=== PATIENT | male | born 1965 | race Hispanic/Latino ===

== ENCOUNTER 2019-11-30 05:07 | Emergency (ER) | payer MEDICARE ==
--- NOTE | 2019-11-30 06:36 | XRay Report ---
EXAMINATION: Right hand radiograph, 3 views, 11/30/2019 CLINICAL INFORMATION: Right hand pain. No history of trauma is given. COMPARISON: None. FINDINGS: There is no evidence of acute bony fracture or significant soft tissue swelling. No signifi cant bony degenerative changes are noted. Signer Name: Nakia Dumont MD Signed: 11/30/2019 6:32 AM Workstation Name: [email or web address]
[2019-11-30] MEDS ORDERED: IBUPROFEN 600 MG TAB PO ONE (08:31)
[2019-11-30 09:09] VITALS: BP 147/112
--- NOTE | 2019-11-30 09:09 | Emergency Department Report ---
ED Upper Extremity Inj HPI - General Chief Complaint: Extremity Injury, Upper Stated Complaint: RIGHT HAND PAIN Time Seen by Provider: 11/30/19 07:33 Source: patient Mode of arrival: Ambulatory Limitations: No Limitations - History of Present Illness Initial Comments: 53-year-old male who presents to ED complaining of right hand pain stating that he he may have had a stone go into his finger. 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 Patient states that the stone Reglan and there is index finger posteriorly. Patient states he feels like there is a foreign body behind his first digit finger. Patient denies any bleeding after incident. He denies fevers/chills/nausea vomiting. Other Extremity Injury: Hand: Right Other Injuries: none Handedness: right Place: work Severity scale (0 -10): 4 - Related Data Home Medications Medication Instructions Recorded Confirmed Last Taken HYDROcodone/ACETAMINOPHEN 1 tab PO BID 02/22/14 Unknown [Hydrocodon-Acetaminophn 10-325] Lactulose 30 ml PO BID 02/22/14 Unknown QUEtiapine [Seroquel] 300 mg PO HS 02/22/14 Unknown hydroCHLOROthiazide 1 tab PO DAILY 02/22/14 Unknown [Hydrochlorothiazide] Previous Rx's Medication Instructions Recorded Last Taken Type Ibuprofen [Motrin 800 MG tab] 800 mg PO Q8HR #30 tablet 11/30/19 Unknown Rx Allergies Allergy/AdvReac Type Severity Reaction Status Date / Time cephalexin [From Keflex] Allergy Hives Verified 11/22/19 02:01 sulfamethoxazole Allergy Unknown Verified 02/22/14 15:27 [From Bactrim] trimethoprim [From Bactrim] Allergy Unknown Verified 02/22/14 15:27 ED Review of Systems ROS: Stated complaint: RIGHT HAND PAIN Other details as noted in HPI ED Past Medical Hx - Past Medical History Previous Medical History?: Yes Hx Hypertension: Yes Hx Seizures: Yes Hx Psychiatric Treatment: Yes (Schizoaffective disorder) - Surgical History Past Surgical History?: Yes Hx Appendectomy: Yes (2011) Additional Surgical History: Tonsillectomy - Social History Smoking Status: Current Every Day Smoker Substance Use Type: None - Medications Home Medications: Home Medications Medication Instructions Recorded Confirmed Last Taken Type HYDROcodone/ACETAMINOPHEN 1 tab PO BID 02/22/14 Unknown History [Hydrocodon-Acetaminophn 10-325] Lactulose 30 ml PO BID 02/22/14 Unknown History QUEtiapine [Seroquel] 300 mg PO HS 02/22/14 Unknown History hydroCHLOROthiazide 1 tab PO DAILY 02/22/14 Unknown History [Hydrochlorothiazide] Ibuprofen [Motrin 800 MG tab] 800 mg PO Q8HR #30 tablet 11/30/19 Unknown Rx ED Physical Exam - General Limitations: No Limitations General appearance: alert, in no apparent distress - Head Head exam: Present: atraumatic, normocephalic - Eye Eye exam: Present: normal appearance - ENT ENT exam: Present: mucous membranes moist - Neck Neck exam: Present: normal inspection - Respiratory Respiratory exam: Present: normal lung sounds bilaterally. Absent: respiratory distress - Cardiovascular Cardiovascular Exam: Present: regular rate, normal rhythm. Absent: systolic murmur, diastolic murmur, rubs, gallop - GI/Abdominal GI/Abdominal exam: Present: soft, normal bowel sounds - Rectal Rectal exam: Present: deferred - Extremities Exam Extremities exam: Present: normal inspection, full ROM, normal capillary refill. Absent: tenderness, pedal edema, joint swelling, other (no swelling, no redness noted. No foreign object palpated no signs of entry wound.) - Back Exam Back exam: Present: normal inspection - Neurological Exam Neurological exam: Present: alert, oriented X3 - Psychiatric Psychiatric exam: Present: normal affect, normal mood - Skin Skin exam: Present: warm, dry, intact, normal color. Absent: rash ED Course Vital Signs 11/30/19 11/30/19 05:14 09:08 Temperature 97.6 F 97.6 F Pulse Rate 89 68 Respiratory 18 18 Rate Blood Pressure 149/107 Blood Pressure 147/112 [Right] O2 Sat by Pulse 96 100 Oximetry ED Medical Decision Making - Medical Decision Making 53-year-old male who presents with hand pain. Examination shows no deformity or any foreign body in the hand. X-rays also showed no foreign body or acute fracture or dislocation. I discussed this findings with the patient. Upon speaking with patient patient states after the ultrasound he sensory some burning on the same right hand. Pain medication given to patient while in the ED. Discussed the patient to follow-up with an orthopedic as well as a primary care physician for follow-up. Vital signs are normal. Patient is in no acute distress. Critical care attestation.: If time is entered above; I have spent that time in minutes in the direct care of this critically ill patient, excluding procedure time. ED Disposition Clinical Impression: Hand pain, right Disposition: DC-01 TO HOME OR SELFCARE Is pt being admited?: No Does the pt Need Aspirin: No Condition: Stable Instructions: Arthralgia (ED) Additional Instructions: Make sure to follow up with the primary care physician as discussed. Take all your medications as you've been prescribed. If you have any worsening symptoms or develop new symptoms please return to ED immediately. Prescriptions: Ibuprofen [Motrin 800 MG tab] 800 mg PO Q8HR #30 tablet Referrals: PRIMARY CAREMD [Primary Care Provider] - 3-5 Days MAREK SELLERS MD [Staff Physician] - 3-5 Days TONY SELLERS PA [Referring] - 3-5 Days [facility] [Provider Group] - 3-5 Days Forms: Work/School Release Form(ED) Time of Disposition: 09:10
== END 2019-11-30 09:16 | disposition home or self-care (01) ==
LOC: ED 05:07
DX: M79.641 Pain in right hand (principal); I10 Essential (primary) hypertension; F25.9 Schizoaffective disorder, unspecified; F17.200 Nicotine dependence, unspecified, uncomplicated
CPT/HCPCS: 99283

== ENCOUNTER 2019-11-30 23:33 | Emergency (ER) | payer MEDICARE ==
[2019-12-01 01:22] LABS: Bacteria,Urine 1+ /HPF (Negative); Bilirubin,Urine NEG (Negative); Blood,Urine NEG (Negative); Color,Urine Yellow (Yellow); Protein,Urine <15 mg/dL mg/dL (Negative)
[2019-12-01 01:40] LABS: Hemoglobin 15.4 gm/dl (11.8-15.2); Mean Corpuscular HGB Conc 34 % (32-34); Mean Corpuscular Volume 92 fl (84-94); Platelet Count 114 K/mm3 (140-440); Red Blood Count 4.88 M/mm3 (3.65-5.03); Red Cell Distribution Width 13.7 % (13.2-15.2)
[2019-12-01 01:46] LABS: Amphetamine Screen,Urine PRESUMPTIVE NEGATIVE; Benzodiazepines Screen,Urine PRESUMPTIVE NEGATIVE; Cannabinoid Screen,Urine PRESUMPTIVE NEGATIVE; Cocaine Screen,Urine PRESUMPTIVE NEGATIVE; Methadone Screen,Urine PRESUMPTIVE NEGATIVE; Opiate Screen,Urine PRESUMPTIVE NEGATIVE
[2019-12-01 02:01] LABS: BUN/Creatinine Ratio 18; Blood Urea Nitrogen 16 mg/dL (9-20); Calcium 9.3 mg/dL (8.4-10.2); Hemolysis Index 6
--- NOTE | 2019-12-01 03:09 | Emergency Department Report ---
HPI - General Chief Complaint: Psych Time Seen by Provider: 12/01/19 02:55 - HPI HPI: Room 8 The patient is a 53-year-old male presenting with a chief complaint of elevated heart rate. The patient states he was given a medication Fanapt today for the f irst time. The patient took a dose of 6 mg this evening at 21:00. The patient states approximately 30 minutes later he felt his heart rate increased. The patient states only other symptom he had was feeling "panicked." The patient states this was a very first time he had ever taken this medication. ED Past Medical Hx - Past Medical History Previous Medical History?: Yes Hx Hypertension: Yes Hx Seizures: Yes Hx Psychiatric Treatment: Yes (Schizoaffective disorder) - Surgical History Past Surgical History?: Yes Hx Appendectomy: Yes (2011) Additional Surgical History: Tonsillectomy - Family History Family history: no significant - Social History Smoking Status: Former Smoker (none 3-4 years) Substance Use Type: Marijuana, Methamphetamines - Medications Home Medications: Home Medications Medication Instructions Recorded Confirmed Last Taken Type HYDROcodone/ACETAMINOPHEN 1 tab PO BID 02/22/14 Unknown History [Hydrocodon-Acetaminophn 10-325] Lactulose 30 ml PO BID 02/22/14 Unknown History QUEtiapine [Seroquel] 300 mg PO HS 02/22/14 Unknown History hydroCHLOROthiazide 1 tab PO DAILY 02/22/14 Unknown History [Hydrochlorothiazide] Ibuprofen [Motrin 800 MG tab] 800 mg PO Q8HR #30 tablet 11/30/19 Unknown Rx ED Review of Systems ROS: Stated complaint: CHEST PAIN Other details as noted in HPI Cardiovascular: palpitations Psychiatric: anxiety Physical Exam - Physical Exam Vital Signs: Vital Signs 11/30/19 23:38 Temperature 98.0 F Pulse Rate 126 H Respiratory 18 Rate Blood Pressure 96/58 O2 Sat by Pulse 96 Oximetry Physical Exam: GENERAL: The patient is well-developed well-nourished male lying on stretcher not appearing to be in acute distress. [] HEENT: Normocephalic. Atraumatic. Extraocular motions are intact. Patient has moist mucous membranes. NECK: Supple. Trachea midline CHEST/LUNGS: Clear to auscultation. There is no respiratory distress noted. HEART/CARDIOVASCULAR: Regular. There is tachycardia. There is no gallop rub or murmur. ABDOMEN: Abdomen is soft, nontender. Patient has normal bowel sounds. There is no abdominal distention. SKIN: There is no rash. There is no edema. There is no diaphoresis. NEURO: The patient is awake, alert, and oriented. The patient is cooperative. The patient has no focal neurologic deficits. The patient has normal speech MUSCULOSKELETAL:There is no evidence of acute injury. ED Course Vital Signs 11/30/19 23:38 Temperature 98.0 F Pulse Rate 126 H Respiratory 18 Rate Blood Pressure 96/58 O2 Sat by Pulse 96 Oximetry ED Medical Decision Making - Lab Data Result diagrams: 12/01/19 01:05 12/01/19 01:05 Laboratory Tests 12/01/19 12/01/19 12/01/19 00:45 00:45 01:05 WBC RBC Hgb Hct MCV MCH MCHC RDW Plt Count [place] % (Auto) Sodium Potassium Chloride Carbon Dioxide Anion Gap BUN Creatinine Estimated GFR BUN/Creatinine Ratio Glucose Calcium Urine Color Yellow Urine Turbidity Clear Urine pH 6.0 Ur Specific [place] 1.009 Urine Protein <15 mg/dl Urine Glucose (UA) Neg Urine Ketones Neg Urine Blood Neg Urine Nitrite Neg Urine Bilirubin Neg Urine Urobilinogen 2.0 Ur Leukocyte Esterase Neg Urine WBC (Auto) 1.0 Urine RBC (Auto) 1.0 Urine Bacteria (Auto) 1+ Salicylates < 0.3 L Urine Opiates Screen Presumptive negative Urine Methadone Screen Presumptive negative Acetaminophen Ur Barbiturates Screen Presumptive negative Ur Phencyclidine Scrn Presumptive negative Ur Amphetamines Screen Presumptive negative U Benzodiazepines Scrn Presumptive negative Urine Cocaine Screen Presumptive negative U Marijuana (THC) Screen Presumptive negative Drugs of Abuse Note Disclamer Plasma/Serum Alcohol 12/01/19 12/01/19 12/01/19 01:05 01:05 01:05 WBC RBC Hgb Hct MCV MCH MCHC RDW Plt Count [place] % (Auto) Sodium 137 Potassium 3.8 Chloride 99.3 Carbon Dioxide 22 Anion Gap 20 BUN 16 Creatinine 0.9 Estimated GFR > 60 BUN/Creatinine Ratio 18 Glucose 184 H Calcium 9.3 Urine Color Urine Turbidity Urine pH Ur Specific [place] Urine Protein Urine Glucose (UA) Urine Ketones Urine Blood Urine Nitrite Urine Bilirubin Urine Urobilinogen Ur Leukocyte Esterase Urine WBC (Auto) Urine RBC (Auto) Urine Bacteria (Auto) Salicylates Urine Opiates Screen Urine Methadone Screen Acetaminophen < 5.0 L Ur Barbiturates Screen Ur Phencyclidine Scrn Ur Amphetamines Screen U Benzodiazepines Scrn Urine Cocaine Screen U Marijuana (THC) Screen Drugs of Abuse Note Plasma/Serum Alcohol < 0.01 12/01/19 01:05 WBC 8.0 RBC 4.88 Hgb 15.4 H Hct 45.0 MCV 92 MCH 32 MCHC 34 RDW 13.7 Plt Count 114 L [place] % (Auto) Accounts Receivable Supervisor Sodium Potassium Chloride Carbon Dioxide Anion Gap BUN Creatinine Estimated GFR BUN/Creatinine Ratio Glucose Calcium Urine Color Urine Turbidity Urine pH Ur Specific [place] Urine Protein Urine Glucose (UA) Urine Ketones Urine Blood Urine Nitrite Urine Bilirubin Urine Urobilinogen Ur Leukocyte Esterase Urine WBC (Auto) Urine RBC (Auto) Urine Bacteria (Auto) Salicylates Urine Opiates Screen Urine Methadone Screen Acetaminophen Ur Barbiturates Screen Ur Phencyclidine Scrn Ur Amphetamines Screen U Benzodiazepines Scrn Urine Cocaine Screen U Marijuana (THC) Screen Drugs of Abuse Note Plasma/Serum Alcohol - EKG Data -: EKG Interpreted by Me EKG shows normal: sinus rhythm Rate: tachycardia (126 bpm) - EKG Data When compared to previous EKG there are: previous EKG unavailable Interpretation: other (no ischemic changes seen) - Medical Decision Making I explained to the patient that his symptoms are likely secondary to the large initial dose of the medication. It is usually recommended that he be started at a much lower dose to avoid orthostasis. I informed the patient that overall slugs look for other causes of his tachycardia in addition to treating him with IV fluids. Patient verbalizes understanding of possible increased morbidity and/or mortality should leave the hospital AGAINST MEDICAL ADVICE. Patient st ates he does not wish to receive IV fluids and does not wish further treatment as he wishes to go home. Patient informed to return to the hospital should he change his mind Critical care attestation.: If time is entered above; I have spent that time in minutes in the direct care of this critically ill patient, excluding procedure time. ED Disposition Clinical Impression: Tachycardia Disposition: DC-07 LEFT AGAINST MED ADVICE Is pt being admited?: No Does the pt Need Aspirin: No Condition: Undetermined Time of Disposition: 03:11 (patient leaving AMA)
[2019-12-01 03:11] VITALS: BP 110/73
[2019-12-01 04:51] LABS: Anisocytosis 1+; Band Neutrophils # (Manual) 0.2 K/mm3; Basophils % (Manual) 0 % (0.0-1.8); Eosinophils % (Manual) 0 % (0.0-4.3); Platelet Estimate Consistent w Auto; Total Cells Counted 100
== END 2019-12-01 03:17 | disposition left against medical advice (07) ==
LOC: ED 23:33
DX: R00.0 Tachycardia, unspecified (principal); I10 Essential (primary) hypertension; F25.9 Schizoaffective disorder, unspecified; Z87.891 Personal history of nicotine dependence; F12.10 Cannabis abuse, uncomplicated
CPT/HCPCS: 36415; 80048; 80307; 80320; 81001; 85007; 85025; 93005; 93010; 99283; G0480